=== PATIENT | female | born 1960 | race Caucasian/White ===

== ENCOUNTER 2018-08-03 13:47 | Inpatient (IN) | payer MEDICARE, MEDICAID ==
[2018-08-03 14:16] LABS: #Eosinphils 0.3 thou/uL (0.0-0.7); #Lymphocytes 1.1 thou/uL (1.20-3.40); #Monocytes 0.6 thou/uL (0.11-0.59); #Neutrophils 9.9 thou/uL (1.40-6.50); %Basophils 0.3 % (0.0-1.0); %Eosinophils 2.5 % (0.0-10.0); %Lymphocytes 9.1 % (21.0-51.0); %Monocytes 4.7 % (0.0-10.0); %Neutrophils 83.4 % (42.0-75.0); Hemoglobin 16.2 g/dL (12.0-16.0); Mean Corpuscular HGB CONC 32.1 g/dL (32.0-36.0); Mean Corpuscular Hemoglobin 31.3 pg (27.0-31.0); Mean Corpuscular Volume 97.7 fL (78.0-98.0); Mean Platelet Volume 9.1 fL (7.4-10.4); Platelet Count 241 thou/uL (130-400); RBC Distribution Width 12.9 % (11.5-14.5); Red Blood Cell (RBC) Count 5.16 mill/uL (4.20-5.40); White Blood Cell (WBC) Count 11.9 thou/uL (4.8-10.8)
--- NOTE | 2018-08-03 14:25 | RAD ---
2 VIEWS CHEST: Date: 08/03/18 COMPARISON: 03/03/16. HISTORY: Worsening fluid overload for 1 year with shortness of breath. FINDINGS: Two views of the chest show an enlarged but stable cardiomediastinal silhouette. The pacemaker is unc hanged in position. Increased interstitial lung markings are present. There is no evidence of consoli dation, mass, or pleural effusion. Degenerative changes are seen in the spine. IMPRESSION: Cardiomegaly without evidence of an acute cardiopulmonary disease. POS: TPC
[2018-08-03 14:36] LABS: ALT (SGPT) 17 U/L (8-55); AST (SGOT) 21 U/L (5-34); Albumin 3.6 g/dL (3.5-5.0); Alkaline Phosphatase 130 U/L (40-150); Anion Gap 21 mmol/L (10-20); BUN (Urea Nitrogen) 25 mg/dL (9.8-20.1); Bilirubin, Total 0.6 mg/dL (0.2-1.2); Calc. Creatinine Clearance 0 mL/min (70-130); Calcium 9.2 mg/dL (7.8-10.44); Carbon Dioxide 22 mmol/L (22-29); Chloride 86 mmol/L (98-107); Estimated GFR-MDRD 38; Globulin 3.6 g/dL (2.4-3.5); Potassium 3.5 mmol/L (3.5-5.1); Protein, Total 7.2 g/dL (6.0-8.3); Sodium 125 mmol/L (136-145)
[2018-08-03 14:47] LABS: Glucose 760 mg/dL (70-105)
[2018-08-03 14:59] LABS: CKMB 1.3 ng/mL (0-6.6)
[2018-08-03] MEDS ORDERED: Insulin Regular 300 UNITS/3 ML VIAL ONE (15:04)
[2018-08-03 15:26] LABS: Magnesium 1.7 mg/dL (1.6-2.6)
[2018-08-03 15:35] LABS: Base Excess-Venous 4.5 mmol/L (-2.0 to 3.0); Bicarbonate (HCO3v) 28.9 mmol/L (22.0-28.0); CO2 Tension (PvCO2) 41.1 mmHg (40.0-50.0); Calcium, Ionized 0.97 mmol/L (See Comments:); Chloride 89 mmol/L (98-107); Hemoglobin - Calc 18.6 g/dL (12.0-16.0); O2 Tension (PvO2) 63.2 mmHg (35.0-45.0); Potassium 4.2 mmol/L (3.5-5.1); Sodium 126 mmol/L (138-145); T. Carbon Dioxide 30.2 mmol/L (22.0-28.0); pH (Venous) 7.456 (7.320-7.430); vO2 Saturation-calc 92.8 % (60.0-85.0)
[2018-08-03] MEDS ORDERED: Aspirin Chewable 81 MG TAB ONE (16:22)
[2018-08-03] MEDS ORDERED: Nitroglycerin 2% Ointment 1 INCH/1 GM Packet ONE (16:22)
[2018-08-03] MEDS ORDERED: HYDROcodone/Acetaminophen 5/325 mg Tablet PO PRN ×2 (17:09)
[2018-08-03] MEDS ORDERED: Senokot S 8.6-50 MG TAB PO PRN (17:09)
[2018-08-03] MEDS ORDERED: Acetaminophen 325 MG TAB PO PRN (17:09)
[2018-08-03] MEDS ORDERED: Dextrose 5% in Water 1,000 ML IV PRN (17:16)
[2018-08-03] MEDS ORDERED: Dextrose 50% Abboject 50 ML SYRINGE SLOW IVP PRN (17:16)
[2018-08-03 18:05] LABS: Troponin I 0.053 ng/mL (< 0.028)
[2018-08-03 21:25] LABS: Troponin I 0.072 ng/mL (< 0.028)
[2018-08-03 21:55] VITALS: BMI 51.0
[2018-08-03] MEDS: Sodium Chloride 0.9% 1,000 ML IV SCH (22:44)
[2018-08-03] MEDS: Famotidine 20 MG TAB PO SCH (22:44)
[2018-08-03] MEDS ORDERED: Lorazepam 1 MG TAB PO PRN (23:38)
[2018-08-03] MEDS: Insulin Glargine 10 UNITS in Pre-Filled Syringe SC SCH (23:41)
[2018-08-03] MEDS: HumaLOG 300 UNITS/3 ML VIAL SC PRN (23:42)
--- NOTE | 2018-08-04 02:10 | HP ---
CHIEF COMPLAINT: Chest pain, shortness of breath, nausea, bilateral lower leg swelling. HISTORY OF PRESENT ILLNESS: During evaluation, Ms. Antonio was found to have a blood sugar of 760. Beta hydroxybutyrate was negative at 0.11. Magnesium 1.7. First troponin was in the indeterminate range of 0.058. She was also found to be hyponatremic with a sodium of 125, potassium 3.5, chloride 86, gap is 21, BUN is 25, creatinine 1.42. BNP 318. Chest x-ray shows cardiomegaly without evidence of acute cardiopulmonary process. The patient was started on normal saline, was given 10 units of regular insulin subcu and subsequent glucose has not improved significantly. The patient will be subsequently admitted for further management. PAST MEDICAL HISTORY: Cardiac history, myocardial infarction, diabetes, hypothyroidism, hyperlipidemia, hypertension, obesity, chronic obstructive pulmonary disease, psoriasis, congestive heart failure. SURGICAL HISTORY: Tonsillectomy stents x2, right carpal tunnel release. PSYCH HISTORY: Anxiety disorder. SOCIAL HISTORY: Smokes about a half a pack a day and has for the last 30 years. Denies any alcohol use. Denies any drug use. Lives at home. Has a caregiver who comes in to help her with meals and laundry. REVIEW OF SYSTEMS: CONSTITUTIONAL: The patient denies fever, chills. EYES: Denies any eye pain, discharge, vision changes. ENT: Denies rhinorrhea, sore throat. CARDIOVASCULAR: Chest pain, palpitations. RESPIRATORY: Denies cough. She does report some shortness of breath, worse with exertion. GI: Denies any abdominal pain. Does report some diarrhea this morning. Denies any nausea. : Denies any dysuria, hematuria. MUSCULOSKELETAL: Denies any injury or falls. SKIN: Denies rash. EXTREMITIES: Does report bilateral lower leg edema which is worsened in the last several weeks. NEUROLOGIC: Denies a headache. PHYSICAL EXAMINATION: VITAL SIGNS: Blood pressure 141/66, pulse of 78, respirations , PO2 sats are 94% on room air. CONSTITUTIONAL: The patient appears nontoxic, is alert and oriented to person, place, and time. HEENT: Head is atraumatic and normocephalic. Eyes, pupils are equally round and reactive to light. Extraocular muscles are intact. ENT, pharynx exam is normal. Mouth exam is normal. Mucous membranes are moist. NECK: Trachea is midline. Normal range of motion. RESPIRATORY: Mild expiratory wheezes. No signs of respiratory distress. CARDIOVASCULAR: Heart rate regular rate and rhythm. Heart sounds are normal. ABDOMEN: Nontender. Bowel sounds are heard. BACK: Normal inspection normal range of motion. EXTREMITIES: Upper extremities, normal range of motion. Motor strength is normal. Sensation intact. Radial pulses normal. Lower extremities, normal range of motion. Sensation intact. Pedal pulses are equal. Edema noted bilaterally +2. NEUROLOGIC: The patient is oriented to person, place, and time. Speech is normal. STUDIES: EKG shows normal sinus rhythm, beats per minute 80, unifocal premature ventricular complexes conduction. T-waves flattened lateral leads. Q-waves in 2, 3, , V1, V2, prolonged QTc. PERTINENT LABS: Blood gas, pH is 7.45, CO2 is 41, O2 of 63.2, bicarbonate 28.9, beta hydroxy 0.11, magnesium 1.7, phosphorus 3. Troponin 0.058. CK-MB is 1.3. Sodium is 125, potassium 3.5, chloride 86, carbon dioxide 22, anion gap is 21, BUN is 25, creatinine is 1.42, estimated GFR is 38, glucose is 760. Liver enzymes are unremarkable. BNP 318. White blood cell count is 11.9, hemoglobin is 16.2, hematocrit is 50.4, and platelet count is 241. PLAN/ASSESSMENT: 1. Hyperglycemia without evidence of diabetic ketoacidosis, hyperosmolar state. We will hydrate insulin, moderate scale with q. 4 glucose checks until we can get it under 300 and then sliding scale with before meals and at bedtime once better controlled. 2. Chest pain with elevated troponin. The patient had an echocardiogram in 2014 with a reduced EF of 20% to 25%, grade 2/3 diastolic dysfunction. We will repeat her echocardiogram at this point once we have her sugar under better control, trend troponins, and once echocardiogram has been reviewed, we will decide on any further interventions. 3. Acute kidney injury. Today's creatinine was 1.42. The last one we have on record is from 2016, which was 0.69. Gentle hydration. Recheck values in the morning. We will hold any nephrotoxic medications. 4. Hypothyroidism. We will check a TSH, free T3, T4 with morning labs. 5. History of hyperlipidemia. We will check fasting lipids in the morning. 6. History of diastolic dysfunction with some fluid overload. See #2 above. We may need to diurese with Lasix given that we are giving her fluids for her sugar. 7. Gastrointestinal prophylaxis will be started. 8. Hypertension. We will continue home medications. We will continue to trend. 9. Hospital course will be dependent on clinical findings. Job ID: [id number]
[2018-08-04] MEDS ORDERED: HumaLOG 300 UNITS/3 ML VIAL SC SCH (02:45)
[2018-08-04 05:26] LABS: #Eosinphils 0.4 thou/uL (0.0-0.7); #Lymphocytes 1.4 thou/uL (1.20-3.40); #Monocytes 0.7 thou/uL (0.11-0.59); #Neutrophils 6.3 thou/uL (1.40-6.50); %Basophils 0.5 % (0.0-1.0); %Lymphocytes 15.9 % (21.0-51.0); %Monocytes 7.8 % (0.0-10.0); %Neutrophils 71.9 % (42.0-75.0); Hemoglobin 13.8 g/dL (12.0-16.0); Mean Corpuscular HGB CONC 33.8 g/dL (32.0-36.0); Mean Corpuscular Hemoglobin 32.1 pg (27.0-31.0); Mean Corpuscular Volume 95.1 fL (78.0-98.0); Mean Platelet Volume 8.8 fL (7.4-10.4); Platelet Count 205 thou/uL (130-400); RBC Distribution Width 12.9 % (11.5-14.5); White Blood Cell (WBC) Count 8.8 thou/uL (4.8-10.8)
[2018-08-04 05:42] LABS: ALT (SGPT) 10 U/L (8-55); AST (SGOT) 12 U/L (5-34); Albumin 2.9 g/dL (3.5-5.0); Alkaline Phosphatase 98 U/L (40-150); Anion Gap 13 mmol/L (10-20); BUN (Urea Nitrogen) 22 mg/dL (9.8-20.1); Bilirubin, Total 0.4 mg/dL (0.2-1.2); Calc. Creatinine Clearance 134 mL/min (70-130); Calcium 8.8 mg/dL (7.8-10.44); Carbon Dioxide 31 mmol/L (22-29); Cardiac Risk 6.7 (Less than 4.5); Chloride 92 mmol/L (98-107); Cholesterol 188 mg/dl (< 200 Desired); Estimated GFR-MDRD 64; Globulin 3.2 g/dL (2.4-3.5); Glucose 406 mg/dL (70-105); HDL Cholesterol 28 mg/dL (>60 Neg Risk); LDL Cholesterol, Calculated 125 mg/dL; Protein, Total 6.1 g/dL (6.0-8.3); Sodium 133 mmol/L (136-145); Triglycerides 177 mg/dL (Less than 150)
[2018-08-04 06:00] LABS: Thyroid Stimulating Hormone 3.8792 uIU/mL (0.35-4.94)
[2018-08-04] MEDS: HumaLOG 300 UNITS/3 ML VIAL SC PRN ×5 (06:00→21:19)
[2018-08-04 06:38] LABS: Free T4 (Free Thyroxine) 0.96 ng/dL (0.70-1.48)
[2018-08-04 06:51] LABS: Potassium 2.7 mmol/L (3.5-5.1)
[2018-08-04] MEDS ORDERED: Potassium Chloride 20 MEQ TAB PO SCH ×2 (08:00→10:00)
[2018-08-04] MEDS: Famotidine 20 MG TAB PO SCH ×2 (08:59→21:15)
[2018-08-04] MEDS: Sodium Chloride 0.9% 1,000 ML IV SCH ×2 (11:23)
[2018-08-04 14:34] LABS: Potassium 3.8 mmol/L (3.5-5.1)
[2018-08-04] MEDS: Carvedilol 6.25 MG TAB PO SCH (16:48)
[2018-08-04] MEDS ORDERED: Dextrose 50% Abboject 50 ML SYRINGE SLOW IVP PRN (17:40)
[2018-08-04] MEDS ORDERED: Dextrose 5% in Water 1,000 ML IV PRN (17:40)
[2018-08-04] MEDS ORDERED: Furosemide 20 MG/2 ML VIAL SLOW IVP SCH (17:45)
--- NOTE | 2018-08-04 18:52 | PRG ---
DATE OF SERVICE: 08/04/2018 SUBJECTIVE: Ms. Antonio is a 58-year-old female with multiple medical comorbidities including ischemic cardiomyopathy, nonoperable coronary artery disease, obesity, type 2 diabetes mellitus, COPD, and active tobacco user, who presented to the hospital with a host of complaints including chest pain, shortness of breath, nausea, and bilateral lower extremity swelling, which was worsening. The patient was admitted for chest pain rule out and volume overload along with profound hyperglycemia. Her blood sugars have trended down from 700s now to the 300s. She was profoundly hypokalemic, and that has been repleted. Her chest pain has completely resolved. She has had no nausea or vomiting today. Her main complaint to me is lower extremity swelling and subsequent pain from the swelling. OBJECTIVE: VITAL SIGNS: Blood pressure 146/78, respirations are 22, O2 saturation is 95% on room air, and pulse is 85. The patient is afebrile. GENERAL: This is a morbidly obese female, resting comfortably in bed, in no acute distress. HEENT: Head is atraumatic and normocephalic. Mucous membranes are moist. NECK: Trachea is midline. There is no obvious JVD. CV: S1 and S2. Regular rate and rhythm. I can appreciate no murmurs, rubs, or gallops. LUNGS: Regular respiratory rate and pattern, somewhat diminished breath sounds. No rhonchi or crackles noted. Occasional anterior expiratory wheeze. ABDOMEN: Positive bowel sounds. Obese and nontender. NEUROLOGIC: Cranial nerves 2 through 12 are intact. The patient is nonfocal. EXTREMITIES: The patient has +3 to 4 nonpitting edema bilaterally and associated erythema with several chronic venous ulcers. LABORATORY DATA: Potassium has improved from 2.7 to 3.8. White blood cell count 8.8, hemoglobin 13.8, hematocrit 40.9, and platelets are 205. Last blood sugar was 323. Sodium 133, creatinine 0.9, which is improved from her admitting level at 1.42. Troponin 0.058, 0.053, and 0.072. LDL cholesterol 125, total cholesterol 188, HDL 28, free T4 0.96. Free T3, 2.14. TSH 3.8792. Beta hydroxybutyrate 0.11. ASSESSMENT: 1. Nausea, vomiting, and chest pain at presentation, now resolved. 2. Nonketotic hyperglycemia, improving. 3. Hypokalemia, status post repletement. 4. Ischemic cardiomyopathy, status post AICD, EF 40% to 45%, which is actually improved from her last echo here in the hospital. 5. Indeterminate troponin. 6. Tobacco abuse. 7. Severe triple-vessel coronary artery disease, which has been deemed inoperable in the past. 8. Acute kidney injury at presentation, improved. 9. Profound lower extremity edema, suspect this is secondary to a combination of both lymphedema and chronic venous insufficiency rather than overt volume overload, BNP is 290. PLAN: We will attempt gentle diuresis with close monitoring of her electrolytes. The patient will need outpatient evaluation of her lower extremities and actually states that she has an appointment with a vein doctor at some point in the near future. I have explained that what I believe to be the nature of her lower extremity swelling, and this is likely going to be a chronic issue for her. We will use aggressive sliding scale regarding her insulin. She will need to work with PT prior to discharge. Job ID: [id number]
[2018-08-04] MEDS: Pravastatin Sodium 40 MG TAB PO SCH (21:15)
[2018-08-04] MEDS: Insulin Glargine 10 UNITS in Pre-Filled Syringe SC SCH (21:16)
[2018-08-04] MEDS: Nicotine 14 MG PATCH TD SCH (21:25)
[2018-08-05 05:12] LABS: #Basophils 0.1 thou/uL (0.0-0.2); #Eosinphils 0.3 thou/uL (0.0-0.7); #Lymphocytes 1.9 thou/uL (1.20-3.40); #Monocytes 0.6 thou/uL (0.11-0.59); #Neutrophils 5.7 thou/uL (1.40-6.50); %Lymphocytes 22.3 % (21.0-51.0); %Monocytes 6.4 % (0.0-10.0); %Neutrophils 66.4 % (42.0-75.0); Hemoglobin 14.4 g/dL (12.0-16.0); Mean Corpuscular HGB CONC 33.5 g/dL (32.0-36.0); Mean Corpuscular Hemoglobin 32.1 pg (27.0-31.0); Mean Corpuscular Volume 95.8 fL (78.0-98.0); Platelet Count 222 thou/uL (130-400); Red Blood Cell (RBC) Count 4.49 mill/uL (4.20-5.40); White Blood Cell (WBC) Count 8.6 thou/uL (4.8-10.8)
[2018-08-05] MEDS: Levothyroxine Sodium 75 MCG TAB PO SCH (05:19)
[2018-08-05] MEDS: Furosemide 20 MG/2 ML VIAL SLOW IVP SCH ×2 (05:19→14:04)
[2018-08-05 05:23] LABS: ALT (SGPT) 13 U/L (8-55); AST (SGOT) 14 U/L (5-34); Albumin 3.1 g/dL (3.5-5.0); Alkaline Phosphatase 104 U/L (40-150); Anion Gap 14 mmol/L (10-20); BUN (Urea Nitrogen) 16 mg/dL (9.8-20.1); Bilirubin, Total 0.3 mg/dL (0.2-1.2); Calc. Creatinine Clearance 131 mL/min (70-130); Carbon Dioxide 28 mmol/L (22-29); Chloride 96 mmol/L (98-107); Estimated GFR-MDRD 69; Globulin 3.3 g/dL (2.4-3.5); Glucose 377 mg/dL (70-105); Potassium 3.6 mmol/L (3.5-5.1); Protein, Total 6.4 g/dL (6.0-8.3); Sodium 134 mmol/L (136-145)
[2018-08-05] MEDS: HumaLOG 300 UNITS/3 ML VIAL SC PRN ×4 (05:52→21:35)
[2018-08-05] MEDS ORDERED: Amiodarone 200 MG TAB PO SCH (09:00)
[2018-08-05] MEDS: Famotidine 20 MG TAB PO SCH ×2 (09:07→21:35)
[2018-08-05] MEDS: Potassium Chloride 20 MEQ TAB PO SCH ×2 (09:07→16:12)
[2018-08-05] MEDS: Lisinopril 5 MG TAB PO SCH (09:07)
[2018-08-05] MEDS: Carvedilol 6.25 MG TAB PO SCH ×2 (09:08→16:12)
[2018-08-05] MEDS: Spironolactone 25 MG TAB PO SCH (09:08)
[2018-08-05] MEDS: PARoxetine 20 MG TAB PO SCH (09:08)
[2018-08-05] MEDS ORDERED: Ondansetron PF 4 MG/2 ML Vial IVP PRN (11:18)
[2018-08-05] MEDS ORDERED: Gabapentin 300 MG CAP PO SCH (11:30)
--- NOTE | 2018-08-05 18:08 | PRG ---
DATE OF SERVICE: 08/05/2018 SUBJECTIVE: Ms. Antonio is a 58-year-old female with multiple medical comorbidities including ischemic cardiomyopathy, nonoperable coronary artery disease, obesity, type 2 diabetes mellitus, COPD, chronic edema of the lower extremities, and an active tobacco user, who presented to the hospital with a host of complaints including chest pain, shortness of breath, nausea, and bilateral lower extremity swelling, which was worsening. The patient was admitted for chest pain rule out and volume overload along with profound hyperglycemia with initial readings in the 700s. They have now trended down to the 200s. Her potassium has been repleted. The patient continues to complain of nausea and poor appetite which has prevented her from working with Physical Therapy. She has no chest pain. She has no shortness of breath. She complains of pain in her lower extremities secondary to neuropathy. OBJECTIVE: VITAL SIGNS: Blood pressure 128/62, O2 saturation is 96% on room air, respirations are 17. She is afebrile. Temperature 98. GENERAL: This is a morbidly obese female, resting comfortably in bed , in no acute distress. HEENT: Head is atraumatic and normocephalic. Mucous membranes are moist. NECK: Trachea is midline. There is no obvious JVD. CV: S1 and S2. Regular rate and rhythm. I can appreciate no murmurs, rubs, or gallops. LUNGS: Regular respiratory rate and pattern, somewhat diminished breath sounds. No rhonchi, crackles, or wheezes noted posteriorly. ABDOMEN: Positive bowel sounds. Obese and nontender. NEUROLOGIC: Cranial nerves 2 through 12 are intact. The patient is nonfocal. EXTREMITIES: The patient has 2 to 3+ edema bilaterally and associated erythema which is improving, there are several chronic venous stasis ulcers present. LABORATORY DATA: White blood cell count 8.6, hemoglobin 14.4, hematocrit 43, platelet count is 222. Sodium 134, potassium 3.6, chloride 96, creatinine 0.85 , GFR 69, glucose 295. AST, ALT, and alkaline phosphatase all within normal limits. ASSESSMENT: 1. Nonketotic hyperglycemia at presentation, blood sugars now 200s (down from 700s). 2. Continued nausea. 3. Ischemic cardiomyopathy, status post AICD, EF 40% to 45 percent, which is improved from her last echo. 4. Uncontrolled diabetes mellitus Type II 5. Indeterminate troponin in the setting of acute illness, EF improved 6. Tobacco abuse. 7. Severe triple-vessel coronary artery disease, which has been deemed inoperable in the past. 8. Acute kidney injury, on presentation, initial creatinine was 1.4, now 0.89. 9. Profound lower extremity edema, likely combination of both lymphedema and chronic venous insufficiency, it has improved mildly with gentle diuresis. 10. Hypokalemia, resolved PLAN: We will continue to monitor her electrolytes. She remains with general debility secondary to her acute illness. We will continue antiemetics and supportive care. We will also obtain UA to rule out urinary tract infection. Continue aggressive sliding scale. Will need PT eval which is still pending, as well as case management consult, and anticipate at the very least, discharge with home health, she may qualify for skilled. The patient has multiple medical comorbidities, requiring two midnight stay. Further recommendations based on hospital course. Job ID: [id number] MTDD
--- NOTE | 2018-08-05 18:59 | PDOC.EVN ---
Event Note - Event Note Event Note: Given the patient's numerous medical comorbidities, including uncontrolled DM ( BS 700s on arrival) COPD, ischemic CM, inoperable CAD, and edema multifactorial with likely CVI and lymphedema contributing, the patient meets inpatient criteria at this time. Care discussed with Dr. Quiroga
[2018-08-05] MEDS: Insulin Glargine 10 UNITS in Pre-Filled Syringe SC SCH (21:35)
[2018-08-05] MEDS: Pravastatin Sodium 40 MG TAB PO SCH (21:35)
[2018-08-05] MEDS: Nicotine 14 MG PATCH TD SCH (22:04)
[2018-08-06] MEDS: Furosemide 20 MG/2 ML VIAL SLOW IVP SCH ×2 (05:28→15:45)
[2018-08-06] MEDS: Levothyroxine Sodium 75 MCG TAB PO SCH (05:28)
--- NOTE | 2018-08-06 05:49 | PDOC.EVN ---
Event Note - Event Note Event Note: RN called - Patient has Atrial tachycardia on Tele monitor. Will get EKG/Labs.
[2018-08-06 07:19] LABS: Anion Gap 16 mmol/L (10-20); BUN (Urea Nitrogen) 16 mg/dL (9.8-20.1); Calc. Creatinine Clearance 142 mL/min (70-130); Calcium 8.7 mg/dL (7.8-10.44); Carbon Dioxide 22 mmol/L (22-29); Chloride 101 mmol/L (98-107); Estimated GFR-MDRD 75; Glucose 203 mg/dL (70-105); Magnesium 1.4 mg/dL (1.6-2.6); Phosphorus 3.4 mg/dL (2.3-4.7); Potassium 4.8 mmol/L (3.5-5.1); Sodium 134 mmol/L (136-145)
[2018-08-06] MEDS ORDERED: Magnesium Sulfate 3 GM in Sodium Chloride 0.9% 100 ML IVPB SCH (08:00)
[2018-08-06] MEDS: Spironolactone 25 MG TAB PO SCH (08:53)
[2018-08-06] MEDS: Famotidine 20 MG TAB PO SCH ×2 (08:53→21:48)
[2018-08-06] MEDS: PARoxetine 20 MG TAB PO SCH (08:53)
[2018-08-06] MEDS: Gabapentin 300 MG CAP PO SCH (08:53)
[2018-08-06] MEDS: Potassium Chloride 20 MEQ TAB PO SCH ×3 (08:53→17:51)
[2018-08-06] MEDS: HumuLIN 70/30 (300 UNITS/3 ML VIAL) SC SCH (08:54)
[2018-08-06] MEDS: Enoxaparin Sodium 40 MG/0.4 ML SYRINGE SC SCH (08:56)
[2018-08-06] MEDS ORDERED: HumuLIN 70/30 (300 UNITS/3 ML VIAL) SC SCH ×3 (09:00→17:00)
--- NOTE | 2018-08-06 11:08 | PQF ---
SARAH BOSS, MAXI SORIA MD [id number] [facility]-285 [id number] CLINICAL DOCUMENTATION IMPROVEMENT CLARIFICATION FORM: ICD-10 Updated PLEASE DO AN ADDENDUM TO THE PROGRESS NOTE WITH ANY DOCUMENTATION UPDATES OR ADDITIONS AND CARRY THROUGH TO DC SUMMARY. THANK YOU. DATE: 08/06/2018 ATTN:DR. Sai WU Please exercise your independent, professional judgment in responding to the clarification form. Clinical indicators are provided on the bottom of this form for your review. Please check appropriate box(s): BMI > 40 with associated diagnosis of: (check one) [ x ] Morbid (Severe) Obesity [ ] Due to excess calories [ ] Overweight [ ] Obesity [ ] Other diagnosis [ ] Unable to determine In addition, please specify: Present on Admission (POA): [ x ] Yes [ ] No [ ] Unable to Determine For continuity of documentation, please document condition throughout progress notes and discharge summary. Thank You. BMI < 19 Under weight 19 - 24.9 Healthy 25.0 - 29.9Slightly Overweight 30.0 - 34.9Obese 35.0 - 39.9Severely Obese 40.0 and Over Morbidly Obese CLINICAL INDICATORS - SIGNS / SYMPTOMS / LABS BMI of: _51.0 Difficulty ambulating / positioning self-performing ADLs RISK FACTORS UNCONTROLLED DM HX OF HYPOTHYROIDISM 08/03 GLUCOSE > 550 TREATMENTS: Dietary consult / weight loss counseling Calorie counts THANK YOU ! MARIELLA (This form is maintained as a part of the permanent medical record) 2014 [employer]. All Rights Reserved ADELAIDA [email or web address] [phone] MTDD
[2018-08-06] MEDS ORDERED: Regadenoson 0.4 MG/5 ML SYRINGE ONE (14:16)
[2018-08-06] MEDS: Lisinopril 5 MG TAB PO SCH ×2 (15:44→15:46)
[2018-08-06] MEDS: Carvedilol 6.25 MG TAB PO SCH ×2 (15:44→15:45)
[2018-08-06] MEDS: HumaLOG 300 UNITS/3 ML VIAL SC PRN (17:52)
[2018-08-06] MEDS: Pravastatin Sodium 40 MG TAB PO SCH (21:48)
[2018-08-06] MEDS ORDERED: HumaLOG 300 UNITS/3 ML VIAL SC PRN (22:02)
[2018-08-07] MEDS: Levothyroxine Sodium 75 MCG TAB PO SCH (05:52)
[2018-08-07] MEDS: Furosemide 20 MG/2 ML VIAL SLOW IVP SCH (05:52)
[2018-08-07 06:39] LABS: Bilirubin Negative (Negative); Blood, Urine Small (Negative); Clarity CLOUDY (Clear); Glucose, Urine (Dipstick) Negative (Negative); Leukocyte Large (Negative); Nitrite Negative (Negative); Protein, Urine (Dipstick) 30 mg/dL (Neg-Trace); pH, Urine 7.5 (5.0-9.0)
[2018-08-07 06:45] LABS: Bacteria/HPF 1+ HPF (None Seen); Hyaline Casts/LPF 0-3 HYALINE CAST LPF (0-3 Hyaline); Pathc Cast-AUWi Flag 0.68 (0-2.49)
[2018-08-07 06:55] LABS: Yeast-AUWi Flag 52.6 (0-25.0)
[2018-08-07 07:00] LABS: Yeast-All Forms None Seen HPF (None Seen)
[2018-08-07 07:01] LABS: Urine Culture Reflex No No
[2018-08-07] MEDS ORDERED: Ciprofloxacin 500 MG TAB PO SCH ×2 (07:30→20:00)
[2018-08-07] MEDS ORDERED: Cipro 250 MG TAB PO SCH (09:00)
[2018-08-07] MEDS: Enoxaparin Sodium 40 MG/0.4 ML SYRINGE SC SCH (09:34)
[2018-08-07] MEDS: Carvedilol 6.25 MG TAB PO SCH (09:35)
[2018-08-07] MEDS: Potassium Chloride 20 MEQ TAB PO SCH (09:35)
[2018-08-07] MEDS: Famotidine 20 MG TAB PO SCH (09:36)
[2018-08-07] MEDS: Spironolactone 25 MG TAB PO SCH (09:37)
[2018-08-07] MEDS: PARoxetine 20 MG TAB PO SCH (09:38)
[2018-08-07] MEDS: Lisinopril 5 MG TAB PO SCH (09:39)
[2018-08-07] MEDS: Gabapentin 300 MG CAP PO SCH (09:40)
--- NOTE | 2018-08-07 09:54 | NM ---
EXAM: CARDIAC SPECT HISTORY: Chest pain TECHNIQUE: A myocardial perfusion scan was performed using the single isotope 2 day protocol with eddi hnetium 99m sestamibi. [29 mCi] was injected intravenously for the rest exam followed by 32 mCifor the stress study. Pharmacologic stress with Lexiscan was monitored and interpreted by Dr. Winkler. FINDINGS: There are fixed defects in the anterior and inferolateral kelly. No reversible defects are identified. Gated SPECT LVEF: 25% Wall motion exam: Global hypokinesis IMPRESSION: No evidence of reversible ischemia.
--- NOTE | 2018-08-07 10:09 | PDOC.PN ---
- Subjective Encounter Start Date: 08/07/18 Encounter Start Time: 07:10 Patient seen and examined. No new complaints. No overnight events - Objective Resuscitation Status - Order Detail: 08/03/18 17:09 Resuscitation Status Routine Co-Sign Provider: Resuscitation Status: FULL: Full Resuscitation Discussed with: patient Additional comments: NephewGibson is surrogate decision maker MAR Reviewed: Yes Vital Signs & Weight: Vital Signs (12 hours) Temp Pulse Resp BP BP Pulse Ox 08/07/18 09:39 67 122/59 L 08/07/18 09:35 122/59 L 08/07/18 07:44 97.5 F L 67 18 115/59 L 95 08/07/18 04:00 97.8 F 71 20 118/58 L 93 L 08/07/18 00:00 66 16 94 L Weight Admit Weight 274 lb 11.04 oz Weight 255 lb 15.307 oz I&O: 08/06/18 08/07/18 08/08/18 06:59 06:59 06:59 Intake Total 1200 530 Output Total 250 850 Balance 950 -320 Result Diagrams: 08/05/18 04:31 08/06/18 06:57 Additional Labs: Accuchecks 08/07/18 08/06/18 08/06/18 06:02 20:31 16:49 POC Glucose 148 H 281 H 324 H 08/06/18 10:53 POC Glucose 260 H Radiology Reviewed by me: Yes EKG Reviewed by me: Yes Phys Exam - Physical Examination Constitutional: NAD HEENT: PERRLA, moist MMs, sclera anicteric Neck: no JVD, supple Respiratory: no wheezing, no rales, no rhonchi Cardiovascular: RRR, no significant murmur, no rub Gastrointestinal: soft, non-tender, no distention, positive bowel sounds Musculoskeletal: no edema, pulses present Neurological: non-focal, normal sensation, moves all 4 limbs Lymphatic: no nodes Psychiatric: normal affect, A&O x 3 Skin: no rash, normal turgor Dx/Plan (1) Chest pain Code(s): R07.9 - CHEST PAIN, UNSPECIFIED Status: Acute (2) Hypomagnesemia Code(s): E83.42 - HYPOMAGNESEMIA Status: Acute (3) UTI (urinary tract infection) Status: Acute (4) CAD (coronary artery disease) Code(s): I25.10 - ATHSCL HEART DISEASE OF [place] CORONARY ARTERY W/O ANG PCTRS Status: Chronic Comment: (5) COPD (chronic obstructive pulmonary disease) Status: Chronic (6) Diabetes type 2, uncontrolled Code(s): E11.65 - TYPE 2 DIABETES MELLITUS WITH HYPERGLYCEMIA Status: Chronic (7) HTN (hypertension) Code(s): I10 - ESSENTIAL (PRIMARY) HYPERTENSION Status: Chronic (8) Tobacco abuse Code(s): Z72.0 - TOBACCO USE Status: Chronic - Plan cont current plan of care, continue antibiotics * medication reviewed as below * symptomatic treatment * see discharge irena. Review of Systems - Review of Systems ENT: negative: Ear Pain, Ear Discharge, Nose Pain, Nose Discharge, Nose Congestion, Mouth Pain, Mouth Swelling, Throat Pain, Throat Swelling, Other Respiratory: negative: Cough, Dry, Shortness of Breath, Hemoptysis, SOB with Excertion, Pleuritic Pain, Sputum, Wheezing Cardiovascular: negative: chest pain, palpitations, orthopnea, paroxysmal nocturnal dyspnea, edema, light headedness, other Gastrointestinal: negative: Nausea, Vomiting, Abdominal Pain, Diarrhea, Constipation, Melena, Hematochezia, Other Genitourinary: negative: Dysuria, Frequency, Incontinence, Hematuria, Retention , Other Musculoskeletal: negative: Neck Pain, Shoulder Pain, Arm Pain, Back Pain, Hand Pain, Leg Pain, Foot Pain, Other - Medications/Allergies Allergies/Adverse Reactions: Allergies Allergy/AdvReac Type Severity Reaction Status Date / Time No Known Allergies Allergy Verified 08/28/15 15:23 Medications: Current Medications Acetaminophen (Tylenol) 650 mg PO Q4H PRN PRN Reason: Headache/Fever/Mild Pain (1-3) Hydrocodone Bitart/Acetaminophen ([place] 5/325) 1 tab PO Q4H PRN PRN Reason: Moderate Pain (4-6) Last Admin: 08/04/18 19:10 Dose: 1 tab Hydrocodone Bitart/Acetaminophen ([place] 5/325) 2 tab PO Q4H PRN PRN Reason: Severe Pain (7-10) Last Admin: 08/05/18 04:00 Dose: 2 tab Albuterol/Ipratropium (Duoneb) 3 ml NEB [id number] ASHLEY Last Admin: 08/07/18 07:18 Dose: Not Given Carvedilol (Coreg) 6.25 mg PO BID-[facility] Last Admin: 08/07/18 09:35 Dose: 6.25 mg Ciprofloxacin (Cipro) 500 mg PO 0600,2000 [facility] Dextrose/Water (Dextrose 50%) 25 gm SLOW IVP PRN PRN PRN Reason: Hypoglycemia Enoxaparin Sodium (Lovenox) 40 mg SC 0900 [facility] Last Admin: 08/07/18 09:34 Dose: 40 mg Famotidine (Pepcid) 20 mg PO BID [facility] Last Admin: 08/07/18 09:36 Dose: 20 mg Furosemide (Lasix) 20 mg SLOW IVP 0600,1400 [facility] Last Admin: 08/07/18 05:52 Dose: 20 mg Gabapentin (Neurontin) 300 mg PO DAILY [facility] Last Admin: 08/07/18 09:40 Dose: 300 mg Glucagon (Glucagon) 1 mg IM PRN PRN PRN Reason: Hypoglycemia Dextrose/Water (D5w) 1,000 mls @ 0 mls/hr IV .Q0M PRN PRN Reason: Hypoglycemia Insulin Human Isoph/Insulin Regular (Humulin 70/30) 30 units SC QPM-[facility] Last Admin: 08/06/18 17:52 Dose: 30 unit Insulin Human Isoph/Insulin Regular (Humulin 70/30) 35 units SC QAM [facility] Last Admin: 08/06/18 08:54 Dose: Not Given Insulin Human Lispro (Humalog) 0 units SC .AGGRESSIVE SLIDING PRN PRN Reason: Aggressive Correctional Scale Last Admin: 08/06/18 17:52 Dose: 11 unit Insulin Human Lispro (Humalog) 0 units SC .BEDTIME SLIDING SC PRN PRN Reason: Bedtime Correctional Scale Last Admin: 08/06/18 22:35 Dose: 3 unit Levothyroxine Sodium (Synthroid) 75 mcg PO 0600 [facility] Last Admin: 08/07/18 05:52 Dose: 75 mcg Lisinopril (Zestril) 5 mg PO DAILY [facility] Last Admin: 08/07/18 09:39 Dose: 5 mg Lorazepam (Ativan) 1 mg PO Q4H PRN PRN Reason: Anxiety/Agitation Ondansetron HCl (Zofran) 4 mg IVP Q6H PRN PRN Reason: Nausea/Vomiting Last Admin: 08/05/18 12:39 Dose: 4 mg Paroxetine HCl (Paxil) 40 mg PO DAILY [facility] Last Admin: 08/07/18 09:38 Dose: 40 mg Potassium Chloride (K-Dur) 20 meq PO BID-[facility] Last Admin: 08/07/18 09:35 Dose: 20 meq Pravastatin Sodium (Pravachol) 40 mg PO HS [facility] Last Admin: 08/06/18 21:48 Dose: 40 mg Senna/Docusate Sodium (Senokot S) 2 tab PO BID PRN PRN Reason: Constipation Sodium Chloride (Flush - Normal Saline) 10 ml IVF Q12HR [facility] Last Admin: 08/07/18 09:39 Dose: 10 ml Sodium Chloride (Flush - Normal Saline) 10 ml IVF PRN PRN PRN Reason: Saline Flush Spironolactone (Aldactone) 25 mg PO DAILY [facility] Last Admin: 08/07/18 09:37 Dose: 25 mg
--- NOTE | 2018-08-07 10:10 | PDOC.PN ---
- Subjective Encounter Start Date: 08/06/18 Encounter Start Time: 07:00 -: old records requested/rev Patient seen and examined. No new complaints. No overnight events - Objective Resuscitation Status - Order Detail: 08/03/18 17:09 Resuscitation Status Routine Co-Sign Provider: Resuscitation Status: FULL: Full Resuscitation Discussed with: patient Additional comments: NephewGibson is surrogate decision maker MAR Reviewed: Yes Vital Signs & Weight: Vital Signs (12 hours) Temp Pulse Resp BP BP Pulse Ox 08/07/18 09:39 67 122/59 L 08/07/18 09:35 122/59 L 08/07/18 07:44 97.5 F L 67 18 115/59 L 95 08/07/18 04:00 97.8 F 71 20 118/58 L 93 L 08/07/18 00:00 66 16 94 L Weight Admit Weight 274 lb 11.04 oz Weight 255 lb 15.307 oz I&O: 08/06/18 08/07/18 08/08/18 06:59 06:59 06:59 Intake Total 1200 530 Output Total 250 850 Balance 950 -320 Result Diagrams: 08/05/18 04:31 08/06/18 06:57 Additional Labs: Accuchecks 08/07/18 08/06/18 08/06/18 06:02 20:31 16:49 POC Glucose 148 H 281 H 324 H 08/06/18 10:53 POC Glucose 260 H EKG Reviewed by me: Yes Phys Exam - Physical Examination Constitutional: NAD HEENT: PERRLA, moist MMs, sclera anicteric Neck: no JVD, supple Respiratory: no wheezing, no rales, no rhonchi Cardiovascular: RRR, no significant murmur, no rub Gastrointestinal: soft, non-tender, no distention, positive bowel sounds Musculoskeletal: no edema, pulses present Neurological: non-focal, normal sensation, moves all 4 limbs Lymphatic: no nodes Psychiatric: normal affect, A&O x 3 Skin: no rash, normal turgor Dx/Plan (1) Chest pain Code(s): R07.9 - CHEST PAIN, UNSPECIFIED Status: Acute (2) Hypomagnesemia Code(s): E83.42 - HYPOMAGNESEMIA Status: Acute (3) UTI (urinary tract infection) Status: Acute (4) CAD (coronary artery disease) Code(s): I25.10 - ATHSCL HEART DISEASE OF [place] CORONARY ARTERY W/O ANG PCTRS Status: Chronic Comment: (5) COPD (chronic obstructive pulmonary disease) Status: Chronic (6) Diabetes type 2, uncontrolled Code(s): E11.65 - TYPE 2 DIABETES MELLITUS WITH HYPERGLYCEMIA Status: Chronic (7) HTN (hypertension) Code(s): I10 - ESSENTIAL (PRIMARY) HYPERTENSION Status: Chronic (8) Tobacco abuse Code(s): Z72.0 - TOBACCO USE Status: Chronic - Plan cont current plan of care * medication reviewed as below * symptomatic treatment * stress test. Review of Systems - Review of Systems ENT: negative: Ear Pain, Ear Discharge, Nose Pain, Nose Discharge, Nose Congestion, Mouth Pain, Mouth Swelling, Throat Pain, Throat Swelling, Other Respiratory: negative: Cough, Dry, Shortness of Breath, Hemoptysis, SOB with Excertion, Pleuritic Pain, Sputum, Wheezing Cardiovascular: negative: chest pain, palpitations, orthopnea, paroxysmal nocturnal dyspnea, edema, light headedness, other Gastrointestinal: negative: Nausea, Vomiting, Abdominal Pain, Diarrhea, Constipation, Melena, Hematochezia, Other Genitourinary: negative: Dysuria, Frequency, Incontinence, Hematuria, Retention , Other Musculoskeletal: negative: Neck Pain, Shoulder Pain, Arm Pain, Back Pain, Hand Pain, Leg Pain, Foot Pain, Other Skin: negative: Rash, Lesions, Tir[place], Bruising, Other - Medications/Allergies Allergies/Adverse Reactions: Allergies Allergy/AdvReac Type Severity Reaction Status Date / Time No Known Allergies Allergy Verified 08/28/15 15:23 Medications: Current Medications Acetaminophen (Tylenol) 650 mg PO Q4H PRN PRN Reason: Headache/Fever/Mild Pain (1-3) Hydrocodone Bitart/Acetaminophen ([place] 5/325) 1 tab PO Q4H PRN PRN Reason: Moderate Pain (4-6) Last Admin: 08/04/18 19:10 Dose: 1 tab Hydrocodone Bitart/Acetaminophen ([place] 5/325) 2 tab PO Q4H PRN PRN Reason: Severe Pain (7-10) Last Admin: 08/05/18 04:00 Dose: 2 tab Albuterol/Ipratropium (Duoneb) 3 ml NEB [id number] ASHLEY Last Admin: 08/07/18 07:18 Dose: Not Given Carvedilol (Coreg) 6.25 mg PO BID-[facility] Last Admin: 08/07/18 09:35 Dose: 6.25 mg Ciprofloxacin (Cipro) 500 mg PO 0600,2000 [facility] Dextrose/Water (Dextrose 50%) 25 gm SLOW IVP PRN PRN PRN Reason: Hypoglycemia Enoxaparin Sodium (Lovenox) 40 mg SC 0900 [facility] Last Admin: 08/07/18 09:34 Dose: 40 mg Famotidine (Pepcid) 20 mg PO BID [facility] Last Admin: 08/07/18 09:36 Dose: 20 mg Furosemide (Lasix) 20 mg SLOW IVP 0600,1400 [facility] Last Admin: 08/07/18 05:52 Dose: 20 mg Gabapentin (Neurontin) 300 mg PO DAILY [facility] Last Admin: 08/07/18 09:40 Dose: 300 mg Glucagon (Glucagon) 1 mg IM PRN PRN PRN Reason: Hypoglycemia Dextrose/Water (D5w) 1,000 mls @ 0 mls/hr IV .Q0M PRN PRN Reason: Hypoglycemia Insulin Human Isoph/Insulin Regular (Humulin 70/30) 30 units SC QPM-[facility] Last Admin: 08/06/18 17:52 Dose: 30 unit Insulin Human Isoph/Insulin Regular (Humulin 70/30) 35 units SC QAM [facility] Last Admin: 08/06/18 08:54 Dose: Not Given Insulin Human Lispro (Humalog) 0 units SC .AGGRESSIVE SLIDING PRN PRN Reason: Aggressive Correctional Scale Last Admin: 08/06/18 17:52 Dose: 11 unit Insulin Human Lispro (Humalog) 0 units SC .BEDTIME SLIDING SC PRN PRN Reason: Bedtime Correctional Scale Last Admin: 08/06/18 22:35 Dose: 3 unit Levothyroxine Sodium (Synthroid) 75 mcg PO 0600 [facility] Last Admin: 08/07/18 05:52 Dose: 75 mcg Lisinopril (Zestril) 5 mg PO DAILY [facility] Last Admin: 08/07/18 09:39 Dose: 5 mg Lorazepam (Ativan) 1 mg PO Q4H PRN PRN Reason: Anxiety/Agitation Ondansetron HCl (Zofran) 4 mg IVP Q6H PRN PRN Reason: Nausea/Vomiting Last Admin: 08/05/18 12:39 Dose: 4 mg Paroxetine HCl (Paxil) 40 mg PO DAILY [facility] Last Admin: 08/07/18 09:38 Dose: 40 mg Potassium Chloride (K-Dur) 20 meq PO BID-WM [facility] Last Admin: 08/07/18 09:35 Dose: 20 meq Pravastatin Sodium (Pravachol) 40 mg PO HS [facility] Last Admin: 08/06/18 21:48 Dose: 40 mg Senna/Docusate Sodium (Senokot S) 2 tab PO BID PRN PRN Reason: Constipation Sodium Chloride (Flush - Normal Saline) 10 ml IVF Q12HR [facility] Last Admin: 08/07/18 09:39 Dose: 10 ml Sodium Chloride (Flush - Normal Saline) 10 ml IVF PRN PRN PRN Reason: Saline Flush Spironolactone (Aldactone) 25 mg PO DAILY [facility] Last Admin: 08/07/18 09:37 Dose: 25 mg
--- NOTE | 2018-08-07 11:23 | DIS ---
DATE OF ADMISSION: 08/03/2018 DATE OF DISCHARGE: 08/07/2018 PRIMARY CARE PHYSICIAN: Indiana Castrejon PA-C DISCHARGE DISPOSITION: Home with home health. PRIMARY DISCHARGE DIAGNOSES: 1. Chest pain, ruled out acute coronary syndrome. 2. Hypomagnesemia, replace. 3. Urinary tract infection. 4. [id number] systolic congestive heart failure exacerbation stage C. SECONDARY DISCHARGE DIAGNOSES: Morbid obesity, coronary artery disease, chronic obstructive pulmonary disease, diabetes type 2, hypertension, tobacco abuse disorder, diabetic neuropathy. PRIMARY PROCEDURE/OPERATION: None. RADIOLOGICAL INVESTIGATION: Chest x-ray. Echocardiography showed EF 40% to 45%. Stress test negative. SIGNIFICANT LABORATORY DATA: Hemoglobin 14.4. Creatinine 0.79. Urinalysis suggestive of UTI. Serum ketone 0.11. DISCHARGE MEDICATIONS: 1. Amiodarone 200 mg daily. 2. Metformin 1000 mg b.i.d. 3. Paxil 40 mg daily. 4. Pravastatin 40 mg at bedtime. 5. Cipro 500 mg p.o. b.i.d. for 5 days. 6. Coreg 6.25 mg b.i.d. 7. Lasix 40 mg p.o. b.i.d. 8. Gabapentin 300 mg p.o. daily. 9. Humulin insulin 35 units subcutaneous in morning and 30 units in the evening. 10. Synthroid 75 mcg daily. 11. Lisinopril 5 mg daily. 12. Aldactone 25 mg p.o. daily. CONTRAINDICATION: None. CODE STATUS: Full code. INPATIENT SERVICE SUPERVISOR: None. ALLERGIES: NO KNOWN DRUG ALLERGIES. DISCHARGE PLAN: Posthospital, the patient will follow up with primary care physician in 1 or 2 weeks. HOSPITAL COURSE: A 58-year-old female, who was admitted by Laura Gasca. Please see her H and P for further details. On admission, she was having dyspnea and chest pain. Her dyspnea was related with CHF exacerbation and her chest pain was ruled out with acute coronary syndrome. We did stress test and that came back negative. Her diabetes was not well controlled and that is why we treated her aggressively with insulin therapy. Her echocardiography showed EF 40% to 45%. By the time of discharge, she had euvolemia. Her stress test came back negative. All new medication prescription given to her. The patient had abnormal electrolytes that was corrected. The patient was seen and examined at bedside today. Please see my progress note from today for further detail. Job ID: [id number]
[2018-08-07] MEDS: HumuLIN 70/30 (300 UNITS/3 ML VIAL) SC SCH (11:57)
[2018-08-07 13:06] VITALS: TEMP 98.1
[2018-08-07 13:10] VITALS: BP 120/73
== END 2018-08-07 16:15 | disposition home or self-care (01) | DRG 637 ==
LOC: ERS 13:47 → ERHOLD 17:28 → 2NO 21:49
PROVIDERS: ADMIT Internal Medicine; ATTEND Internal Medicine
DX: E11.65 Type 2 diabetes mellitus with hyperglycemia (principal); I50.23 Acute on chronic systolic (congestive) heart failure; E87.1 Hypo-osmolality and hyponatremia; N17.9 Acute kidney failure, unspecified; N39.0 Urinary tract infection, site not specified; Z68.43 Body mass index [BMI] 50.0-59.9, adult; I11.0 Hypertensive heart disease with heart failure; I25.2 Old myocardial infarction; E03.9 Hypothyroidism, unspecified; E78.5 Hyperlipidemia, unspecified; L40.9 Psoriasis, unspecified; J44.9 Chronic obstructive pulmonary disease, unspecified; I25.10 Atherosclerotic heart disease of native coronary artery without angina pectoris; F17.290 Nicotine dependence, other tobacco product, uncomplicated; I25.5 Ischemic cardiomyopathy; E87.6 Hypokalemia; E66.01 Morbid (severe) obesity due to excess calories; E83.42 Hypomagnesemia; E11.40 Type 2 diabetes mellitus with diabetic neuropathy, unspecified; Z79.4 Long term (current) use of insulin; Z79.899 Other long term (current) drug therapy
CPT/HCPCS: 36415; 36416; 71046; 78452; 80053; 80061; 81001; 82010; 82330; 82553; 82803; 83735; 83880; 84100; 84439; 84443; 84481; 84484; 85025; 93005; 93010; 93017; 93306; 94640; 96361; 96374; A9500; J1650; J1815; J1825; J1940; J2405; J2785; J3475; J3490; J7620

== ENCOUNTER 2020-10-09 16:21 | Inpatient (IN) | payer MEDICARE, MEDICAID ==
[2020-10-09 17:07] LABS: #Eosinphils 0.2 thou/uL (0.0-0.7); #Lymphocytes 0.9 thou/uL (1.20-3.40); #Monocytes 0.8 thou/uL (0.11-0.59); #Neutrophils 8.8 thou/uL (1.40-6.50); %Basophils 0.2 % (0.0-1.0); %Eosinophils 1.4 % (0.0-10.0); %Lymphocytes 8.6 % (21.0-51.0); %Monocytes 7.1 % (0.0-10.0); %Neutrophils 82.7 % (42.0-75.0); Hemoglobin 14.3 g/dL (12.0-16.0); Mean Corpuscular HGB CONC 33.5 g/dL (32.0-36.0); Mean Corpuscular Hemoglobin 34.2 pg (27.0-31.0); Mean Platelet Volume 8.1 fL (7.4-10.4); Platelet Count 239 thou/uL (130-400); RBC Distribution Width 13.7 % (11.5-14.5); Red Blood Cell (RBC) Count 4.18 mill/uL (4.20-5.40); White Blood Cell (WBC) Count 10.7 thou/uL (4.8-10.8)
[2020-10-09 17:21] LABS: ALT (SGPT) 7 U/L (8-55); AST (SGOT) 9 U/L (5-34); Albumin 3.6 g/dL (3.5-5.0); Alkaline Phosphatase 75 U/L (40-110); Anion Gap 15 mmol/L (10-20); BUN (Urea Nitrogen) 10 mg/dL (9.8-20.1); Bilirubin, Total 0.9 mg/dL (0.2-1.2); Calc. Creatinine Clearance 0 mL/min (70-130); Calcium 9.4 mg/dL (7.8-10.44); Carbon Dioxide 27 mmol/L (22-29); Chloride 98 mmol/L (98-107); Globulin 3.6 g/dL (2.4-3.5); Glucose 221 mg/dL (70-105); Potassium 3.5 mmol/L (3.5-5.1); Protein, Total 7.2 g/dL (6.0-8.3); Sodium 136 mmol/L (136-145)
[2020-10-09] MEDS ORDERED: Cefepime 2 GM VIAL ONE (17:21)
[2020-10-09] MEDS ORDERED: Vancomycin 1 GM/200 ML BAG ONE (18:02)
[2020-10-09] MEDS ORDERED: Guaifenesin DM 100-10/5 ML UDCUP PO PRN (19:45)
[2020-10-09] MEDS ORDERED: Ondansetron PF 4 MG/2 ML Vial IVP PRN (19:45)
[2020-10-09] MEDS ORDERED: Electrolyte Replacement Protocol 1 EACH FS SCH (19:45)
[2020-10-09] MEDS ORDERED: HumaLOG 300 UNITS/3 ML VIAL SC PRN ×2 (19:45→23:00)
[2020-10-09] MEDS ORDERED: cloNIDine 0.1 MG TAB PO PRN (19:45)
[2020-10-09] MEDS ORDERED: Morphine 2 MG/ML VIAL SLOW IVP PRN (19:45)
[2020-10-09] MEDS ORDERED: Acetaminophen 325 MG TAB PO PRN (19:45)
[2020-10-09] MEDS ORDERED: Labetalol HCl 100 MG/20 ML VIAL SLOW IVP PRN (19:45)
[2020-10-09] MEDS ORDERED: hydrALAZINE 20 MG/ML VIAL SLOW IVP PRN (19:45)
[2020-10-09] MEDS ORDERED: Promethazine HCl 12.5 MG in Sodium Chloride 0.9% 50 ML IVPB PRN (19:45)
[2020-10-09] MEDS ORDERED: Furosemide 40 MG/4 ML VIAL SLOW IVP SCH (20:00)
[2020-10-09 20:04] LABS: Bacteria/HPF 4+ HPF (None Seen); Bilirubin Negative (Negative); Blood, Urine Trace (Negative); Clarity Clear (Clear); Glucose, Urine (Dipstick) Normal (Negative); Ketone, Urine Negative (Negative); Leukocyte 500 Leu/uL (Negative); Nitrite Negative (Negative); Protein, Urine (Dipstick) Negative (Neg-Trace); RBC/HPF 0-3 HPF (0-3); Specific Gravity, Urine 1.011 (1.002-1.036); Squamous Epithelial 0-3 HPF (0-3); Urobilinogen Normal mg/dL (Less than 2); WBC/HPF 21-50 HPF (0-3); pH, Urine 6.5 (5.0-9.0)
[2020-10-09] MEDS ORDERED: Electrolyte Replacement Protocol FS PRN (20:30)
[2020-10-09 20:33] VITALS: BMI 47.0
[2020-10-09] MEDS ORDERED: HumuLIN 70/30 (300 UNITS/3 ML VIAL) SC SCH (21:00)
[2020-10-09] MEDS ORDERED: Atorvastatin Calcium 10 MG TAB PO SCH (21:00)
[2020-10-09] MEDS ORDERED: Gabapentin 300 MG CAP PO PRN (22:15)
[2020-10-09] MEDS ORDERED: Vancomycin 1 GM in Premix Bag 1 BAG IVPB SCH (22:45)
[2020-10-09] MEDS ORDERED: Lantus 1000 UNITS/10 ML VIAL SC SCH (23:00)
[2020-10-09] MEDS ORDERED: VANCOMYCIN 1.75 GM/350 ML BAG 1.75 GM in Premix Bag 1 BAG IVPB SCH (23:00)
[2020-10-09] MEDS: Famotidine 20 MG TAB PO SCH (23:05)
[2020-10-09] MEDS: Enoxaparin Sodium 40 MG/0.4 ML SYRINGE SC SCH (23:06)
[2020-10-09] MEDS: HYDROcodone/Acetaminophen 5/325 mg Tablet PO PRN (23:06)
[2020-10-09] MEDS: Lantus 1000 UNITS/10 ML VIAL SC SCH (23:08)
[2020-10-10 04:33] LABS: #Eosinphils 0.2 thou/uL (0.0-0.7); #Lymphocytes 0.8 thou/uL (1.20-3.40); #Neutrophils 9.7 thou/uL (1.40-6.50); %Basophils 0.1 % (0.0-1.0); %Eosinophils 1.7 % (0.0-10.0); %Lymphocytes 7.1 % (21.0-51.0); %Monocytes 8.5 % (0.0-10.0); %Neutrophils 82.6 % (42.0-75.0); Hemoglobin 12.7 g/dL (12.0-16.0); Mean Corpuscular HGB CONC 32.1 g/dL (32.0-36.0); Mean Corpuscular Hemoglobin 32.7 pg (27.0-31.0); Platelet Count 227 thou/uL (130-400); RBC Distribution Width 13.8 % (11.5-14.5); Red Blood Cell (RBC) Count 3.87 mill/uL (4.20-5.40); White Blood Cell (WBC) Count 11.8 thou/uL (4.8-10.8)
[2020-10-10 04:53] LABS: Anion Gap 11 mmol/L (10-20); BUN (Urea Nitrogen) 9 mg/dL (9.8-20.1); Calc. Creatinine Clearance 148 mL/min (70-130); Calcium 8.8 mg/dL (7.8-10.44); Carbon Dioxide 31 mmol/L (22-29); Chloride 100 mmol/L (98-107); Glucose 165 mg/dL (70-105); Magnesium 1.7 mg/dL (1.6-2.6); Potassium 3.4 mmol/L (3.5-5.1); Sodium 139 mmol/L (136-145)
[2020-10-10 05:13] LABS: Free T4 (Free Thyroxine) 0.8 ng/dL (0.70-1.48); Thyroid Stimulating Hormone 8.2875 uIU/mL (0.35-4.94)
[2020-10-10] MEDS ORDERED: Furosemide 100 MG/10 ML VIAL SLOW IVP SCH ×2 (06:00→09:00)
[2020-10-10] MEDS ORDERED: Levothyroxine Sodium 75 MCG TAB PO SCH (06:00)
[2020-10-10] MEDS: Levothyroxine Sodium 88 MCG TAB PO SCH (06:19)
[2020-10-10] MEDS ORDERED: Magnesium 2 GM/50 ML 2 GM in Premix Bag 1 BAG IVPB SCH (06:30)
[2020-10-10] MEDS ORDERED: Potassium Chloride 20 MEQ TAB PO SCH (06:45)
[2020-10-10] MEDS ORDERED: Carvedilol 6.25 MG TAB PO SCH (08:00)
[2020-10-10] MEDS ORDERED: metFORMIN 500 MG TAB PO SCH (08:00)
[2020-10-10] MEDS ORDERED: Lisinopril 5 MG TAB PO SCH (09:00)
[2020-10-10] MEDS ORDERED: HumuLIN 70/30 (300 UNITS/3 ML VIAL) SC SCH (09:00)
[2020-10-10] MEDS ORDERED: Spironolactone 25 MG TAB PO SCH (09:00)
[2020-10-10] MEDS ORDERED: Gabapentin 300 MG CAP PO SCH (09:00)
[2020-10-10] MEDS: Bupropion 100 MG SR TAB PO SCH ×2 (10:00→22:18)
[2020-10-10] MEDS: Aspirin 81 mg Enteric Coated Tablet PO SCH (10:00)
[2020-10-10] MEDS: Polyethylene Glycol 3350 17 GM Packet PO SCH (10:00)
[2020-10-10] MEDS: Glimepiride 4 MG TAB PO SCH (10:01)
[2020-10-10] MEDS: PARoxetine 20 MG TAB PO SCH (10:01)
[2020-10-10] MEDS: Carvedilol 6.25 MG TAB PO SCH ×2 (10:01→17:22)
[2020-10-10] MEDS: Amiodarone 200 MG TAB PO SCH (10:01)
[2020-10-10] MEDS: Sacubitril 49 MG/Valsartan 51 MG TABLET PO SCH ×2 (10:01→22:09)
[2020-10-10] MEDS: Famotidine 20 MG TAB PO SCH ×2 (10:02→22:09)
[2020-10-10] MEDS: VANCOMYCIN 1.75 GM/350 ML BAG 1.75 GM in Premix Bag 1 BAG IVPB SCH ×2 (12:09→22:24)
[2020-10-10 12:42] LABS: SARS-CoV-2 PCR by NAA Not Detected (NotDetected)
[2020-10-10] MEDS: Furosemide 100 MG/10 ML VIAL SLOW IVP SCH (17:26)
[2020-10-10] MEDS: Enoxaparin Sodium 40 MG/0.4 ML SYRINGE SC SCH (22:17)
[2020-10-10] MEDS: Atorvastatin Calcium 40 MG TAB PO SCH (22:19)
[2020-10-11] MEDS ORDERED: Potassium Chloride 20 MEQ TAB PO SCH ×2 (01:00→06:45)
[2020-10-11] MEDS ORDERED: Electrolyte Replacement Protocol FS PRN (01:00)
[2020-10-11] MEDS: HYDROcodone/Acetaminophen 5/325 mg Tablet PO PRN ×2 (03:58→20:05)
[2020-10-11] MEDS: Furosemide 100 MG/10 ML VIAL SLOW IVP SCH ×2 (05:05→14:56)
[2020-10-11] MEDS: Levothyroxine Sodium 88 MCG TAB PO SCH (05:05)
[2020-10-11 05:49] LABS: #Eosinphils 0.3 thou/uL (0.0-0.7); #Lymphocytes 1.4 thou/uL (1.20-3.40); #Neutrophils 8.3 thou/uL (1.40-6.50); %Basophils 0.2 % (0.0-1.0); %Eosinophils 2.5 % (0.0-10.0); %Monocytes 8.9 % (0.0-10.0); %Neutrophils 75.3 % (42.0-75.0); Hemoglobin 13.3 g/dL (12.0-16.0); Mean Corpuscular HGB CONC 31.8 g/dL (32.0-36.0); Mean Corpuscular Hemoglobin 32.7 pg (27.0-31.0); Mean Platelet Volume 9.6 fL (7.4-10.4); Platelet Count 151 thou/uL (130-400); RBC Distribution Width 13.6 % (11.5-14.5); Red Blood Cell (RBC) Count 4.05 mill/uL (4.20-5.40)
[2020-10-11 05:56] LABS: Hemoglobin A1c 7.2 % (4.0-6.0)
[2020-10-11] MEDS ORDERED: cefTRIAXone\\ROCEPHIN 1 GM in Sodium Chloride 0.9% 100 ML IVPB SCH (06:00)
[2020-10-11 06:12] LABS: ALT (SGPT) Less than 7 U/L (8-55); AST (SGOT) 11 U/L (5-34); Albumin 2.7 g/dL (3.5-5.0); Alkaline Phosphatase 61 U/L (40-110); Anion Gap 11 mmol/L (10-20); BUN (Urea Nitrogen) 10 mg/dL (9.8-20.1); Calc. Creatinine Clearance 151 mL/min (70-130); Calcium 8.7 mg/dL (7.8-10.44); Carbon Dioxide 30 mmol/L (22-29); Chloride 99 mmol/L (98-107); Cholesterol 116 mg/dl (< 200 Desired); Globulin 3.2 g/dL (2.4-3.5); Glucose 85 mg/dL (70-105); HDL Cholesterol 23 mg/dL (>60 Neg Risk); LDL Cholesterol, Calculated 76 mg/dL; Potassium 3.5 mmol/L (3.5-5.1); Protein, Total 5.9 g/dL (6.0-8.3); Sodium 136 mmol/L (136-145); Triglycerides 86 mg/dL (Less than 150)
[2020-10-11] MEDS ORDERED: Magnesium 2 GM/50 ML 2 GM in Premix Bag 1 BAG IVPB SCH (07:45)
[2020-10-11] MEDS: Amiodarone 200 MG TAB PO SCH (08:27)
[2020-10-11] MEDS: Bupropion 100 MG SR TAB PO SCH ×2 (08:27→19:57)
[2020-10-11] MEDS: Glimepiride 4 MG TAB PO SCH (08:27)
[2020-10-11] MEDS: Aspirin 81 mg Enteric Coated Tablet PO SCH (08:27)
[2020-10-11] MEDS: Famotidine 20 MG TAB PO SCH ×2 (08:28→19:59)
[2020-10-11] MEDS: PARoxetine 20 MG TAB PO SCH (08:28)
[2020-10-11] MEDS: Polyethylene Glycol 3350 17 GM Packet PO SCH (08:29)
[2020-10-11] MEDS: Spironolactone 25 MG TAB PO SCH (08:39)
[2020-10-11] MEDS: Carvedilol 6.25 MG TAB PO SCH ×2 (08:39→17:46)
[2020-10-11 10:16] LABS: Vancomycin, Trough 28.5 ug/mL
[2020-10-11] MEDS: Sacubitril 49 MG/Valsartan 51 MG TABLET PO SCH ×2 (11:17→19:57)
[2020-10-11] MEDS: Enoxaparin Sodium 40 MG/0.4 ML SYRINGE SC SCH (19:57)
[2020-10-11] MEDS: Atorvastatin Calcium 40 MG TAB PO SCH (19:57)
[2020-10-11] MEDS: Lantus 1000 UNITS/10 ML VIAL SC SCH (20:58)
[2020-10-12] MEDS: Vancomycin 1 GM in Premix Bag 1 BAG IVPB SCH ×2 (00:22→13:24)
[2020-10-12] MEDS: HYDROcodone/Acetaminophen 5/325 mg Tablet PO PRN (00:26)
[2020-10-12] MEDS ORDERED: Dextrose 50% Abboject 50 ML SYRINGE SLOW IVP PRN (06:00)
[2020-10-12] MEDS ORDERED: Dextrose 5% in Water 1,000 ML IV PRN (06:00)
[2020-10-12] MEDS: Levothyroxine Sodium 88 MCG TAB PO SCH (06:24)
[2020-10-12] MEDS: Furosemide 100 MG/10 ML VIAL SLOW IVP SCH ×2 (06:24→13:23)
[2020-10-12] MEDS: cefTRIAXone\\ROCEPHIN 1 GM in Sodium Chloride 0.9% 100 ML IVPB SCH (06:38)
[2020-10-12 07:52] LABS: #Basophils 0.1 thou/uL (0.0-0.2); #Eosinphils 0.4 thou/uL (0.0-0.7); #Lymphocytes 0.9 thou/uL (1.20-3.40); #Monocytes 0.8 thou/uL (0.11-0.59); %Basophils 0.5 % (0.0-1.0); %Eosinophils 3.7 % (0.0-10.0); %Lymphocytes 8.7 % (21.0-51.0); %Monocytes 7.8 % (0.0-10.0); %Neutrophils 79.3 % (42.0-75.0); Hemoglobin 14.2 g/dL (12.0-16.0); Mean Corpuscular Hemoglobin 32.8 pg (27.0-31.0); Mean Platelet Volume 8.1 fL (7.4-10.4); Platelet Count 242 thou/uL (130-400); RBC Distribution Width 13.5 % (11.5-14.5); Red Blood Cell (RBC) Count 4.32 mill/uL (4.20-5.40); White Blood Cell (WBC) Count 10.1 thou/uL (4.8-10.8)
[2020-10-12 08:14] LABS: Anion Gap 14 mmol/L (10-20); BUN (Urea Nitrogen) 11 mg/dL (9.8-20.1); Calc. Creatinine Clearance 156 mL/min (70-130); Calcium 8.7 mg/dL (7.8-10.44); Carbon Dioxide 28 mmol/L (22-29); Chloride 96 mmol/L (98-107); Glucose 126 mg/dL (70-105); Potassium 3.8 mmol/L (3.5-5.1); Sodium 134 mmol/L (136-145)
[2020-10-12] MEDS ORDERED: Magnesium 2 GM/50 ML 2 GM in Premix Bag 1 BAG IVPB SCH (09:45)
[2020-10-12] MEDS: Aspirin 81 mg Enteric Coated Tablet PO SCH (09:51)
[2020-10-12] MEDS: Carvedilol 6.25 MG TAB PO SCH ×2 (09:52→16:51)
[2020-10-12] MEDS: Glimepiride 4 MG TAB PO SCH (09:52)
[2020-10-12] MEDS: Famotidine 20 MG TAB PO SCH ×3 (09:52→21:02)
[2020-10-12] MEDS: Spironolactone 25 MG TAB PO SCH (09:52)
[2020-10-12] MEDS: Amiodarone 200 MG TAB PO SCH (09:52)
[2020-10-12] MEDS: Sacubitril 49 MG/Valsartan 51 MG TABLET PO SCH ×2 (09:52→21:03)
[2020-10-12] MEDS: PARoxetine 20 MG TAB PO SCH (09:52)
[2020-10-12] MEDS: Polyethylene Glycol 3350 17 GM Packet PO SCH ×2 (09:53→10:04)
[2020-10-12] MEDS: Bupropion 100 MG SR TAB PO SCH ×2 (09:53→21:02)
[2020-10-12] MEDS: Empagliflozin 10 MG TAB PO SCH (09:53)
[2020-10-12] MEDS: Enoxaparin Sodium 40 MG/0.4 ML SYRINGE SC SCH (21:01)
[2020-10-12] MEDS: Atorvastatin Calcium 40 MG TAB PO SCH (21:02)
[2020-10-12] MEDS: Lantus 1000 UNITS/10 ML VIAL SC SCH (21:04)
[2020-10-13] MEDS: Furosemide 100 MG/10 ML VIAL SLOW IVP SCH (05:39)
[2020-10-13] MEDS: Levothyroxine Sodium 88 MCG TAB PO SCH (05:39)
[2020-10-13] MEDS: Furosemide 40 MG/4 ML VIAL SLOW IVP SCH ×2 (06:08→13:51)
[2020-10-13] MEDS: cefTRIAXone\\ROCEPHIN 1 GM in Sodium Chloride 0.9% 100 ML IVPB SCH (06:16)
[2020-10-13] MEDS: Amiodarone 200 MG TAB PO SCH (09:14)
[2020-10-13] MEDS: Glimepiride 4 MG TAB PO SCH (09:14)
[2020-10-13] MEDS: Aspirin 81 mg Enteric Coated Tablet PO SCH (09:15)
[2020-10-13] MEDS: Bupropion 100 MG SR TAB PO SCH ×2 (09:15→21:53)
[2020-10-13] MEDS: Carvedilol 6.25 MG TAB PO SCH ×3 (09:15→21:53)
[2020-10-13] MEDS: Empagliflozin 10 MG TAB PO SCH (09:16)
[2020-10-13] MEDS: Famotidine 20 MG TAB PO SCH ×2 (09:17→21:53)
[2020-10-13] MEDS: Polyethylene Glycol 3350 17 GM Packet PO SCH (09:17)
[2020-10-13] MEDS: PARoxetine 20 MG TAB PO SCH (09:17)
[2020-10-13] MEDS: Sacubitril 49 MG/Valsartan 51 MG TABLET PO SCH ×2 (09:17→21:53)
[2020-10-13] MEDS: Spironolactone 25 MG TAB PO SCH (09:18)
[2020-10-13] MEDS ORDERED: Vancomycin 1 GM in Premix Bag 1 BAG IVPB SCH (11:00)
[2020-10-13 11:57] LABS: Vancomycin, Trough 10.7 ug/mL
[2020-10-13] MEDS: Vancomycin 1 GM in Premix Bag 1 BAG IVPB SCH (13:51)
[2020-10-13] MEDS: Enoxaparin Sodium 40 MG/0.4 ML SYRINGE SC SCH (21:53)
[2020-10-13] MEDS: Atorvastatin Calcium 40 MG TAB PO SCH (21:53)
[2020-10-13] MEDS: Lantus 1000 UNITS/10 ML VIAL SC SCH (21:54)
[2020-10-14] MEDS: Vancomycin 1 GM in Premix Bag 1 BAG IVPB SCH ×2 (00:41→13:55)
[2020-10-14 05:04] LABS: #Basophils 0.1 thou/uL (0.0-0.2); #Eosinphils 0.2 thou/uL (0.0-0.7); #Lymphocytes 0.9 thou/uL (1.20-3.40); #Monocytes 0.8 thou/uL (0.11-0.59); #Neutrophils 6.9 thou/uL (1.40-6.50); %Basophils 0.6 % (0.0-1.0); %Eosinophils 2.4 % (0.0-10.0); %Lymphocytes 9.7 % (21.0-51.0); %Monocytes 9.2 % (0.0-10.0); %Neutrophils 78.1 % (42.0-75.0); Hemoglobin 15.1 g/dL (12.0-16.0); Mean Corpuscular Hemoglobin 32.5 pg (27.0-31.0); Mean Platelet Volume 8.3 fL (7.4-10.4); Platelet Count 270 thou/uL (130-400); RBC Distribution Width 13.3 % (11.5-14.5); Red Blood Cell (RBC) Count 4.64 mill/uL (4.20-5.40); White Blood Cell (WBC) Count 8.9 thou/uL (4.8-10.8)
[2020-10-14 05:31] LABS: Anion Gap 12 mmol/L (10-20); BUN (Urea Nitrogen) 11 mg/dL (9.8-20.1); Calc. Creatinine Clearance 155 mL/min (70-130); Carbon Dioxide 30 mmol/L (22-29); Chloride 95 mmol/L (98-107); Glucose 81 mg/dL (70-105); Iron 37 ug/dL (50-170); Potassium 3.5 mmol/L (3.5-5.1); Sodium 133 mmol/L (136-145)
[2020-10-14] MEDS: Levothyroxine Sodium 88 MCG TAB PO SCH (05:42)
[2020-10-14] MEDS ORDERED: Potassium Chloride 20 MEQ TAB PO SCH (06:30)
[2020-10-14] MEDS ORDERED: Potassium Chloride 10 MEQ TAB PO SCH (08:00)
[2020-10-14] MEDS: Glimepiride 4 MG TAB PO SCH (08:48)
[2020-10-14] MEDS: Spironolactone 25 MG TAB PO SCH (08:51)
[2020-10-14] MEDS: Carvedilol 6.25 MG TAB PO SCH (08:51)
[2020-10-14] MEDS: Bupropion 100 MG SR TAB PO SCH (08:51)
[2020-10-14] MEDS: Furosemide 40 MG TAB PO SCH ×2 (08:51→15:09)
[2020-10-14] MEDS: PARoxetine 20 MG TAB PO SCH (08:51)
[2020-10-14] MEDS: Sacubitril 49 MG/Valsartan 51 MG TABLET PO SCH (08:51)
[2020-10-14] MEDS: Aspirin 81 mg Enteric Coated Tablet PO SCH (08:52)
[2020-10-14] MEDS: Famotidine 20 MG TAB PO SCH (08:52)
[2020-10-14] MEDS: Amiodarone 200 MG TAB PO SCH (08:52)
[2020-10-14] MEDS: Polyethylene Glycol 3350 17 GM Packet PO SCH (08:53)
[2020-10-14] MEDS: Empagliflozin 10 MG TAB PO SCH (08:53)
[2020-10-14 12:26] VITALS: BP 127/60
[2020-10-14 12:28] VITALS: TEMP 97.5
== END 2020-10-14 15:32 | disposition home health service (06) | DRG 602 ==
LOC: ERS 16:21 → 2NO 18:41
PROVIDERS: ADMIT Internal Medicine; ATTEND Internal Medicine
DX: L03.115 Cellulitis of right lower limb (principal); I50.23 Acute on chronic systolic (congestive) heart failure; N39.0 Urinary tract infection, site not specified; Z68.41 Body mass index [BMI] 40.0-44.9, adult; I87.2 Venous insufficiency (chronic) (peripheral); Z20.822 Contact with and (suspected) exposure to COVID-19; I11.0 Hypertensive heart disease with heart failure; L40.9 Psoriasis, unspecified; F41.9 Anxiety disorder, unspecified; F17.210 Nicotine dependence, cigarettes, uncomplicated; I25.10 Atherosclerotic heart disease of native coronary artery without angina pectoris; R29.6 Repeated falls; K74.60 Unspecified cirrhosis of liver; E11.65 Type 2 diabetes mellitus with hyperglycemia; E03.9 Hypothyroidism, unspecified; E78.5 Hyperlipidemia, unspecified; E66.01 Morbid (severe) obesity due to excess calories; J44.9 Chronic obstructive pulmonary disease, unspecified; I49.3 Ventricular premature depolarization; I25.5 Ischemic cardiomyopathy; Z95.810 Presence of automatic (implantable) cardiac defibrillator; Z79.01 Long term (current) use of anticoagulants; Z79.82 Long term (current) use of aspirin; Z79.4 Long term (current) use of insulin; Z79.899 Other long term (current) drug therapy; I25.2 Old myocardial infarction; Z95.5 Presence of coronary angioplasty implant and graft; I89.0 Lymphedema, not elsewhere classified
CPT/HCPCS: 36415; 36416; 71045; 80048; 80053; 80061; 80202; 81003; 81015; 83036; 83540; 83605; 83735; 83880; 84439; 84443; 85025; 87040; 87086; 93005; 93306; 93970; 96365; 96367; 96375; J0692; J0696; J1650; J1815; J1940; J2270; J3370; J3475; J3490; U0003; U0005